=== PATIENT | female | born 1995 | race Caucasian/White ===

== ENCOUNTER → 2016-10-18 | Outpatient (CLI) | payer MEDICAID ==
[2016-10-18 18:52] LABS: BASO % 0.1 % (0.0-1.0); EOS # 0.1 K/mm3 (0.0-0.50); EOS % 1.2 % (0.0-3.0); LARGE UNSTAINED CELL # 0.1 K/mm3 (0.0-0.4); LARGE UNSTAINED CELL % 1.4 % (0.0-4.0); LYMPH # 1.4 K/mm3 (1.5-6.5); LYMPH % 16.3 % (24.0-44.0); MEAN CORPUSCULAR HEMOGLOBIN 31.5 pg (27.0-33.0); MEAN CORPUSCULAR HGB CONC 35.9 g/dl (32.0-36.5); MEAN CORPUSCULAR VOLUME 87.8 fl (80.0-96.0); MONO # 0.4 K/mm3 (0.0-0.8); MONO % 4.6 % (0.0-5.0); NEUTROPHILS # 6.6 K/mm3 (1.8-7.7); NEUTROPHILS % 76.5 % (36.0-66.0); PLATELET COUNT, AUTOMATED 267 k/mm3 (150-450); RED CELL DISTRIBUTION WIDTH 11.9 % (11.5-14.5); WHITE BLOOD COUNT 8.7 K/mm3 (4.0-10.0)
[2016-10-19 12:36] LABS: HIV SCRN NEGATIVE (NEGATIVE); HIV SCRN1 NEGATIVE (NEGATIVE)
[2016-10-19 12:37] LABS: CONTROL LINE INT CTR LINE PRESENT
[2016-10-20 09:25] LABS: HBsAg Prenatal NEGATIVE (NEGATIVE)
== END ==
LOC: M SMT 14:43
PROVIDERS: ATTEND Advanced Practice Midwife
DX: Z34.81 Encounter for supervision of other normal pregnancy, first trimester (principal)

== ENCOUNTER → 2016-10-26 | Outpatient (CLI) | payer MEDICAID ==
--- NOTE | 2016-10-26 14:03 | REP ---
TRANSABDOMINAL PELVIC ULTRASOUND: 10/26/2016 INDICATION: dating, size greater than dates Date of last menstrual period 07/13/2016. According to last menstrual period, fetus should be 15-week 0-day gestational age with DEVENDRA 04/19/2017. On today's study fetus is 34-ukof-2-day with DEVENDRA 04/14/2017. The fetus is in vertex position. There is an anterior grade 0 placenta without previa or abruption. Cervix is closed, 3.9 cm in length. heart rate 141 beats per minute by M-mode. EFW 126 grams corresponding to 64th percentile based on dates from last menstrual period. Subjectively the amniotic fluid appears within normal limits. Evaluation of the maternal adnexal and cul-de-sac regions revealed no abnormalities. Nuchal cord was not seen. ANATOMY: cranium, cord plexus, cavum, cerebellum/posterior fossa, face and profile, lungs, four-chamber heart, left ventricular outflow tract are within normal limits. Right ventricular outflow tract is suboptimally visualized. diaphragm, left-sided stomach, three-vessel cord, central cord insertion, are normal. There is minimal renal pelviectasis bilaterally measuring up to 1.3 mm on right. bladder is contracted and poorly visualized. Upper and lower extremities are visualized. There is suboptimal visualization of the spine due to lie. BPD 3.2 cm = 16 weeks 1 day HC 11.7 cm = 15 weeks 5 days AC 9.4 cm = 15 weeks 3 days FL 1.8 cm = 15 weeks 3 days HC/AC ratio 1.25 within normal range Cephalic index 0.70 within normal range. IMPRESSION: Limited ultrasound due to early gestational age of 15 w 5 d gestational age by today's ultrasound. with DEVENDRA 04/14/17. There is suboptimal visualization of the right ventricular outflow tract, spine, contracted bladder. Tiny bilateral choroid plexus cysts were suggested. Recommend routine complete anatomy screening ultrasound at 19 to 20 gestational age. MTDD
== END ==
LOC: M SMT 10:44
PROVIDERS: ATTEND Advanced Practice Midwife
DX: Z34.81 Encounter for supervision of other normal pregnancy, first trimester (principal)

== ENCOUNTER → 2016-11-22 | Outpatient (REF) | payer OTHER | LOC: M LAB REF 17:07 | PROVIDERS: ATTEND Obstetrics & Gynecology | DX: Z34.82 Encounter for supervision of other normal pregnancy, second trimester (principal) ==

== ENCOUNTER → 2016-12-06 | Outpatient (CLI) | payer OTHER ==
--- NOTE | 2016-12-06 11:17 | REP ---
OB ULTRASOUND: Real-time sonographic evaluation of the gravid uterus performed. There is a single living intrauterine gestation with estimated gestation age of 20 weeks 6 days. EDC 04/19/2017. Today's measurements indicate appropriate growth. BPD 51 mm, 21 weeks 3 days, 66th percentile HC 187 mm, 21 weeks 0 days, 54th percentile AC 172 mm, 22 weeks 1 day, 77th percentile FL 36 mm, 21 weeks 3 days, 65th percentile HC/AC ratio 1.09 within normal range. Estimated weight 448 grams, 77th percentile. heart rate 139 beats per minute. SEEN/GROSSLY UNREMARKABLE Lateral ventricles Yes Posterior fossa Yes Upper lip Yes Four-chamber heart Yes LVOT Yes RVOT Yes Stomach Yes Cord insertion Yes Three vessel cord Yes Kidneys Yes Bladder Yes Spine Yes Choroid plexus cysts have resolved. position variable. Placenta anterior and grade 0 with no previa or abruption. Amniotic fluid within normal limits. Cervix is closed and measures approximately 5.9 cm in length. Signed by Avery Tejada MD 12/06/2016 04:57 P
== END ==
LOC: M SMT 08:55
PROVIDERS: ATTEND Obstetrics & Gynecology
DX: Z34.82 Encounter for supervision of other normal pregnancy, second trimester (principal)

== ENCOUNTER → 2017-01-12 | Outpatient (CLI) | payer OTHER ==
[2017-01-12 18:41] LABS: MEAN CORPUSCULAR HEMOGLOBIN 31.8 pg (27.0-33.0); MEAN CORPUSCULAR HGB CONC 34.5 g/dl (32.0-36.5); MEAN CORPUSCULAR VOLUME 92.1 fl (80.0-96.0); RED CELL DISTRIBUTION WIDTH 12.8 % (11.5-14.5); WHITE BLOOD COUNT 10.7 K/mm3 (4.0-10.0)
== END ==
LOC: M SMT 11:22
PROVIDERS: ATTEND Obstetrics & Gynecology
DX: Z34.82 Encounter for supervision of other normal pregnancy, second trimester (principal)